=== PATIENT | male | born 2000 | race Caucasian/White ===

== ENCOUNTER → 2022-01-04 15:40 | Outpatient (BNVA) | payer MEDICAID, SELFPAY | PROVIDERS: PCP Registered Nurse; Visit Provider Registered Nurse | DX: Z20.2 Contact with and (suspected) exposure to infections with a predominantly sexual mode of transmission (principal); Z20.6 Contact with and (suspected) exposure to human immunodeficiency virus [HIV]; Z59.00 Homelessness unspecified | CPT/HCPCS: 81000; 86705; 86706; 86709; 86803; 87340; 87491; 87591; 87661; 87806 ==

== ENCOUNTER 2023-10-02 15:11 | Emergency (ER) | payer MEDICAID, SELFPAY ==
[2023-10-02 15:12] VITALS: BP 108/75; PULSE 88; RESP 18; TEMP 36.8; O2SAT 95
--- NOTE | 2023-10-02 15:28 | PC.NURSE ---
pt told PSA enjoy my cooperation now because it wont last long physician notified.
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
== END 2023-10-02 17:08 | disposition home or self-care (01) ==
PROVIDERS: Emergency Provider Emergency Medicine; PCP Registered Nurse
DX: Z00.8 Encounter for other general examination (principal); Z79.82 Long term (current) use of aspirin; Z72.0 Tobacco use
CPT/HCPCS: 99283